=== PATIENT | male | born 1950 | race Two or more races ===

== ENCOUNTER 2021-12-08 12:34 | Emergency (ER) | payer OTHER ==
[~2021-12-08] VITALS: Ht 180.3 cm; Wt 73.0 kg
--- NOTE | 2021-12-08 12:35 | NUR ---
BLOOD STAIN NOTED IN HIS UNDER PANTS X 2 DAYS
--- NOTE | 2021-12-08 12:42 | NUR ---
DR SYLVESTER AT BEDSIDE FOR EVAL
[2021-12-08] MEDS ORDERED: LIDOCAINE VISCOUS 2% UD 15 ML UDC ONE (12:50)
[2021-12-08] MEDS ORDERED: LIDOCAINE/PRILOCAINE (5GM) 5 GM TUBE TP ONE (12:53)
--- NOTE | 2021-12-08 12:55 | NUR ---
Patient discharged to home in stable condition. Written and verbal after care instructions given. Patient verbalizes understanding of instruction.
[2021-12-08 13:09] VITALS: BP 140/80
== END 2021-12-08 12:55 | disposition home or self-care (01) ==
LOC: ER 12:34
DX: K64.5 Perianal venous thrombosis (principal); I10 Essential (primary) hypertension; Z60.2 Problems related to living alone